=== PATIENT | female | born 1995 | race Caucasian/White ===

== ENCOUNTER → 2020-12-09 | Outpatient (REF) | payer OTHER | LOC: M SFHCWAGY 19:09 | PROVIDERS: ATTEND Nurse Practitioner Women's Health | DX: Z12.4 Encounter for screening for malignant neoplasm of cervix (principal) | CPT/HCPCS: G0123; G0463 ==

== ENCOUNTER → 2021-03-22 | Outpatient (CLI) | payer OTHER | LOC: EDUNIT# 12-24 09:00 → M WHC 10:38 | PROVIDERS: ATTEND Nurse Practitioner Women's Health | DX: N83.202 Unspecified ovarian cyst, left side (principal) ==

== ENCOUNTER → 2021-04-27 | Outpatient (CLI) | payer OTHER | LOC: M SOG 11:51 | PROVIDERS: ATTEND Orthopaedic Surgery | DX: M25.561 Pain in right knee (principal) ==

== ENCOUNTER → 2021-05-03 | Outpatient (CLI) | payer OTHER | LOC: M PLAIMG 13:32 | PROVIDERS: ATTEND Orthopaedic Surgery | DX: M25.561 Pain in right knee (principal); S83.191A Other subluxation of right knee, initial encounter; M23.91 Unspecified internal derangement of right knee; W18.30XA Fall on same level, unspecified, initial encounter; Y92.009 Unspecified place in unspecified non-institutional (private) residence as the place of occurrence of the external cause ==

== ENCOUNTER → 2021-05-19 | Outpatient (CLI) | payer OTHER | LOC: M RAD 16:16 | PROVIDERS: ATTEND Nurse Practitioner Family | DX: M51.26 Other intervertebral disc displacement, lumbar region (principal); M41.9 Scoliosis, unspecified ==

== ENCOUNTER → 2021-11-05 | Outpatient (REF) | payer OTHER | LOC: M LAB REF 12:14 | PROVIDERS: ATTEND Student in an Organized Health Care Education/Training Program | DX: J02.9 Acute pharyngitis, unspecified (principal) ==

== ENCOUNTER → 2022-07-11 | Outpatient (REF) | payer OTHER | LOC: M LAB REF 09:25 | PROVIDERS: ATTEND Student in an Organized Health Care Education/Training Program | DX: J02.9 Acute pharyngitis, unspecified (principal) ==

== ENCOUNTER → 2022-07-26 | Outpatient (CLI) | payer OTHER ==
[2022-07-26 14:39] LABS: HEMATOCRIT 37.7 % (36.0-47.0); HEMOGLOBIN 12.7 g/dl (12.0-15.5); MEAN CORPUSCULAR HEMOGLOBIN 31.9 pg (27.0-33.0); MEAN CORPUSCULAR HGB CONC 33.7 g/dl (32.0-36.5); MEAN CORPUSCULAR VOLUME 94.7 fl (80.0-96.0); PLATELET COUNT, AUTOMATED 324 10^3/uL (150-450); RED BLOOD COUNT 3.98 10^6/uL (4.00-5.40); WHITE BLOOD COUNT 7.7 10^3/uL (4.0-10.0)
[2022-07-26 15:35] LABS: HIV 1&2 SCREEN NEGATIVE (NEGATIVE)
[2022-07-26 15:43] LABS: HEPATITIS C VIRUS ABY INDEX 0.1 INDEX (<0.8)
== END ==
LOC: M PLALAB 10:47
PROVIDERS: ATTEND Advanced Practice Midwife
DX: Z34.01 Encounter for supervision of normal first pregnancy, first trimester (principal)

== ENCOUNTER → 2022-09-02 | Outpatient (CLI) | payer OTHER | LOC: M WHC 09:22 | PROVIDERS: ATTEND Obstetrics & Gynecology | DX: Z34.92 Encounter for supervision of normal pregnancy, unspecified, second trimester (principal) ==

== ENCOUNTER → 2022-09-02 | Outpatient (CLI) | payer OTHER ==
[2022-09-02 15:26] LABS: GC DNA AMPLIFICATION NEGATIVE (NEGATIVE)
== END ==
LOC: M PLALAB 09:52
PROVIDERS: ATTEND Obstetrics & Gynecology
DX: Z34.92 Encounter for supervision of normal pregnancy, unspecified, second trimester (principal)

== ENCOUNTER → 2022-10-18 | Outpatient (CLI) | payer OTHER | LOC: M WHC 06:44 | PROVIDERS: ATTEND Obstetrics & Gynecology | DX: Z34.92 Encounter for supervision of normal pregnancy, unspecified, second trimester (principal) ==

== ENCOUNTER → 2022-12-06 | Outpatient (CLI) | payer OTHER ==
[2022-12-06 16:08] LABS: HEMATOCRIT 32.2 % (36.0-47.0); HEMOGLOBIN 11.1 g/dl (12.0-15.5); MEAN CORPUSCULAR HEMOGLOBIN 32.2 pg (27.0-33.0); MEAN CORPUSCULAR HGB CONC 34.5 g/dl (32.0-36.5); MEAN CORPUSCULAR VOLUME 93.3 fl (80.0-96.0); PLATELET COUNT, AUTOMATED 317 10^3/uL (150-450); RED BLOOD COUNT 3.45 10^6/uL (4.00-5.40); WHITE BLOOD COUNT 10.7 10^3/uL (4.0-10.0)
[2022-12-06 17:37] LABS: GC DNA AMPLIFICATION NEGATIVE (NEGATIVE)
== END ==
LOC: M PLALAB 13:01
PROVIDERS: ATTEND Obstetrics & Gynecology
DX: Z34.92 Encounter for supervision of normal pregnancy, unspecified, second trimester (principal)

== ENCOUNTER → 2023-02-10 | Outpatient (REF) | payer OTHER | LOC: M PLALAB 15:54 | PROVIDERS: ATTEND Obstetrics & Gynecology | DX: Z36.85 Encounter for antenatal screening for Streptococcus B (principal); Z3A.36 36 weeks gestation of pregnancy ==

== ENCOUNTER 2023-03-03 02:33 | Outpatient (CLI) | payer OTHER ==
[~2023-03-03] VITALS: Ht 152.4 cm; Wt 80.7 kg
== END 2023-03-03 06:40 | disposition home or self-care (01) ==
LOC: M LDO 02:33
PROVIDERS: ATTEND Obstetrics & Gynecology
DX: O47.1 False labor at or after 37 completed weeks of gestation (principal); Z3A.39 39 weeks gestation of pregnancy
CPT/HCPCS: 59025; G0463

== ENCOUNTER 2023-03-12 13:38 | Inpatient (IN) | payer OTHER ==
[~2023-03-12] VITALS: Ht 152.4 cm; Wt 83.2 kg
[2023-03-12 14:05] VITALS: BP 134/76
[2023-03-12] MEDS ORDERED: HOME MED LIST COMPLETE! XX SCH (14:10)
[2023-03-12] MEDS ORDERED: MULTTAB20 PO (14:10)
[2023-03-12] MEDS ORDERED: ACET-897 PO (14:10)
[2023-03-12] MEDS ORDERED: OXYTOCIN DRIP 30 UNITS in IV 1 EA IV PRN ×4 (15:05)
[2023-03-12] MEDS ORDERED: LACTATED RINGER'S 1000 ML IV PRN (15:05)
[2023-03-12] MEDS ORDERED: TRANEXAMIC ACID INJection 1,000 MG in NS 100 ML IV PRN (15:05)
[2023-03-12] MEDS ORDERED: METHYLERGONOVINE MALEATE 0.2MG/ML 1ML VIAL IM PRN (15:05)
[2023-03-12] MEDS ORDERED: CARBOPROST TROMETHAMINE 250 MCG/ML AMP IM PRN (15:05)
[2023-03-12 15:18] VITALS: BP 118/74
[2023-03-12 15:25] LABS: HEMATOCRIT 32.4 % (36.0-47.0); HEMOGLOBIN 10.7 g/dl (12.0-15.5); MEAN CORPUSCULAR HEMOGLOBIN 27.8 pg (27.0-33.0); MEAN CORPUSCULAR VOLUME 84.2 fl (80.0-96.0); PLATELET COUNT, AUTOMATED 311 10^3/uL (150-450); RED BLOOD COUNT 3.85 10^6/uL (4.00-5.40)
[2023-03-12] MEDS ORDERED: miSOPROStol 50MCG 1/2 TABLET PO ONE (16:00)
[2023-03-12 16:13] VITALS: BP 110/70
[2023-03-12 17:16] VITALS: BP 116/74
[2023-03-12 18:20] VITALS: BP 124/68
[2023-03-12 19:15] VITALS: BP 111/71
[2023-03-13] VITALS (12 sets, daily range): BP systolic 104–136; BP diastolic 63–80
[2023-03-13] MEDS: miSOPROStol 50MCG 1/2 TABLET PO ONE ×2 (00:15→00:17)
[2023-03-13] MEDS ORDERED: OXYTOCIN DRIP 30 UNITS in IV 1 EA IV SCH (02:10)
[2023-03-13] MEDS ORDERED: CALCIUM CARBONATE 500 MG CHEW U/D PO PRN (08:05)
[2023-03-13] MEDS ORDERED: PROMETHAZINE 25MG/ML 1ML VIAL IV ONE (23:50)
[2023-03-13] MEDS ORDERED: BUTORPHANOL 2 MG/ML 1ML VIAL IV ONE (23:50)
[2023-03-14] VITALS (20 sets, daily range): BP systolic 80–126; BP diastolic 50–78; O2SAT 95–100
[2023-03-14] MEDS ORDERED: LACTATED RINGER'S 1000 ML IV STA (05:03)
[2023-03-14] MEDS ORDERED: LR 1,000 ML IV SCH ×4 (05:05→07:45)
[2023-03-14] MEDS ORDERED: ONDANSETRON 4MG 2ML VIAL IV PRN ×3 (05:05→07:45)
[2023-03-14] MEDS ORDERED: AZITHROMYCIN INJ 500 MG, VIAL MATE ADAPTER 1 EACH in NS 250 ML IV ONE (05:05)
[2023-03-14] MEDS ORDERED: LIDOCAINE 1% MDV 20ML VIAL INFIL PRN (05:05)
[2023-03-14] MEDS ORDERED: MEPERIDINE 25 MG/ML 1ML VIAL IV PRN (05:05)
[2023-03-14] MEDS ORDERED: BICITRA 30ML SOLN UDC PO ONE ×2 (05:05)
[2023-03-14] MEDS ORDERED: NALOXONE INJ 0.4MG/1ML VIAL IV PRN ×4 (05:05→07:45)
[2023-03-14] MEDS ORDERED: OXYTOCIN DRIP 30 UNITS in IV 1 EA IV PRN (05:05)
[2023-03-14] MEDS ORDERED: NALBUPHINE HCL 1MG/0.1ML (100MG/10ML) MDV IV PRN ×2 (05:05→07:45)
[2023-03-14] MEDS ORDERED: diphenhydrAMINE 50MG/ML VIAL IV PRN ×2 (05:05→07:45)
[2023-03-14] MEDS ORDERED: ceFAZolin SOD 2 GM in IV 1 EA IV ONE (05:05)
[2023-03-14] MEDS ORDERED: MORPHINE 2 MG/ML 1ML VIAL IV PRN (05:05)
[2023-03-14] MEDS ORDERED: **NOTE PATIENT COMMENT** MISC XX SCH ×2 (05:05→07:45)
[2023-03-14] MEDS ORDERED: METOCLOPRAMIDE INJ 10MG/2ML VIAL IV PRN ×2 (05:05→07:45)
[2023-03-14] MEDS ORDERED: ONDANSETRON 4MG 2ML VIAL IV ONE (06:00)
[2023-03-14] MEDS ORDERED: MORPHINE PRES-FREE INJ 10 MG/10 ML VIAL As Ordered ONE (06:18)
[2023-03-14] MEDS ORDERED: ACETAMINOPHEN 1000MG 100ML IV BAG As Ordered ONE (06:35)
[2023-03-14] MEDS ORDERED: OXYTOCIN 30UNITS IN 0.9% NaCl 500ML IV BAG As Ordered ONE ×2 (06:35→07:30)
[2023-03-14] MEDS ORDERED: PHENYLephrine 500MCG 5ML (100MCG/ML) SYRINGE As Ordered ONE ×2 (06:46→06:52)
[2023-03-14] MEDS ORDERED: ePHEDrine SULFATE 25 MG/5 ML(5MG/ML) SYRINGE As Ordered ONE ×2 (06:46→09:06)
[2023-03-14] MEDS ORDERED: KETOROLAC 60MG 2ML VIAL As Ordered ONE (06:49)
[2023-03-14] MEDS ORDERED: ANUSOL HC CREAM 30GM TOP PRN (07:20)
[2023-03-14] MEDS ORDERED: MORPHINE 4 MG/ML 1ML VIAL IV PRN (07:20)
[2023-03-14] MEDS ORDERED: OXYTOCIN DRIP 30 UNITS in IV 1 EA IV SCH (07:20)
[2023-03-14] MEDS ORDERED: SIMETHICONE 80MG CHEW TAB PO PRN (07:20)
[2023-03-14] MEDS ORDERED: PERCOCET 5MG/325MG TAB PO PRN (07:20)
[2023-03-14] MEDS ORDERED: RHOGAM 300MCG (1500IU) INJ IM SCH (07:20)
[2023-03-14] MEDS ORDERED: PERCOCET PO (07:25)
[2023-03-14] MEDS ORDERED: COLA100C5 PO (07:25)
[2023-03-14] MEDS ORDERED: IBUP80TA PO (07:25)
[2023-03-14] MEDS ORDERED: oxyCODONE 5MG TAB PO PRN (07:45)
[2023-03-14] MEDS ORDERED: fentaNYL 100 MCG/2 ML INJECTION IV PRN (07:45)
[2023-03-14] MEDS ORDERED: ePHEDrine INJ 50MG/ML 1ML VIAL IV PRN (09:10)
[2023-03-14] MEDS: ePHEDrine SULFATE 25 MG/5 ML(5MG/ML) SYRINGE IV PRN ×3 (09:10→09:20)
[2023-03-14] MEDS ORDERED: ePHEDrine SULFATE 25 MG/5 ML(5MG/ML) SYRINGE IVP PRN (09:25)
[2023-03-14] MEDS: SLF 3 ML SYR IV SCH ×5 (09:51→20:06)
[2023-03-14] MEDS: DOCUSATE SODIUM 100MG CAPSULE PO SCH ×2 (09:51→20:06)
[2023-03-14] MEDS: PRENATAL VITAMINS CHEWABLE TABLET PO SCH (09:52)
[2023-03-14] MEDS: KETOROLAC 30 MG/ML 1ML VIAL IV SCH ×2 (12:50→18:36)
[2023-03-15] VITALS (7 sets, daily range): BP systolic 97–118; BP diastolic 52–85; O2SAT 97–100
[2023-03-15] MEDS: KETOROLAC 30 MG/ML 1ML VIAL IV SCH (00:47)
[2023-03-15] MEDS: SLF 3 ML SYR IV SCH (00:47)
[2023-03-15] MEDS: ACETAMINOPHEN 500 MG TAB PO PRN ×2 (06:33→15:09)
[2023-03-15 07:36] LABS: HEMOGLOBIN 7.6 g/dl (12.0-15.5); MEAN CORPUSCULAR HEMOGLOBIN 27.4 pg (27.0-33.0); MEAN CORPUSCULAR HGB CONC 31.7 g/dl (32.0-36.5); MEAN CORPUSCULAR VOLUME 86.6 fl (80.0-96.0); PLATELET COUNT, AUTOMATED 206 10^3/uL (150-450); RED BLOOD COUNT 2.77 10^6/uL (4.00-5.40); WHITE BLOOD COUNT 10.7 10^3/uL (4.0-10.0)
[2023-03-15] MEDS: IBUPROFEN 800 MG TAB PO SCH ×2 (08:44→16:19)
[2023-03-15] MEDS: PRENATAL VITAMINS CHEWABLE TABLET PO SCH (08:44)
[2023-03-15] MEDS: DOCUSATE SODIUM 100MG CAPSULE PO SCH ×2 (08:44→20:16)
[2023-03-15] MEDS: PERCOCET 5MG/325MG TAB PO PRN (16:18)
[2023-03-16] VITALS (10 sets, daily range): BP systolic 104–131; BP diastolic 58–78; TEMP 98–98.8; O2SAT 97–100
[2023-03-16] MEDS: IBUPROFEN 800 MG TAB PO SCH ×3 (00:16→17:19)
[2023-03-16] MEDS: PERCOCET 5MG/325MG TAB PO PRN (01:50)
[2023-03-16] MEDS ORDERED: MEASLES,MUMPS,RUBELLA VACCINE INJ (MMR-II) SC.IMMUN ONE (09:00)
[2023-03-16] MEDS: DOCUSATE SODIUM 100MG CAPSULE PO SCH ×2 (09:41→19:08)
[2023-03-16] MEDS: PRENATAL VITAMINS CHEWABLE TABLET PO SCH (09:41)
[2023-03-17] MEDS: IBUPROFEN 800 MG TAB PO SCH ×2 (00:20→07:42)
[2023-03-17 06:31] LABS: HEMATOCRIT 28.4 % (36.0-47.0); HEMOGLOBIN 9.2 g/dl (12.0-15.5); MEAN CORPUSCULAR HGB CONC 32.4 g/dl (32.0-36.5); MEAN CORPUSCULAR VOLUME 86.6 fl (80.0-96.0); PLATELET COUNT, AUTOMATED 255 10^3/uL (150-450); RED BLOOD COUNT 3.28 10^6/uL (4.00-5.40); WHITE BLOOD COUNT 9.2 10^3/uL (4.0-10.0)
[2023-03-17] MEDS: DOCUSATE SODIUM 100MG CAPSULE PO SCH (07:42)
[2023-03-17] MEDS: PRENATAL VITAMINS CHEWABLE TABLET PO SCH (07:42)
[2023-03-17 09:00] VITALS: BP 128/79; O2SAT 99
== END 2023-03-17 12:15 | disposition home or self-care (01) | DRG 773 ==
LOC: M LDI 13:38 → M OBS 03-14 09:08
PROVIDERS: ADMIT Obstetrics & Gynecology; ATTEND Obstetrics & Gynecology
PROC: 3E0P7GC Introduction of Other Therapeutic Substance into Female Reproductive, Via Natural or Artificial Opening (ICD-10-PCS; 2023-03-12)
PROC: 10907ZC Drainage of Amniotic Fluid, Therapeutic from Products of Conception, Via Natural or Artificial Opening (ICD-10-PCS; 2023-03-13)
PROC: 10D00Z1 Extraction of Products of Conception, Low, Open Approach (ICD-10-PCS; principal; 2023-03-14 06:00)
PROC: 30233N1 Transfusion of Nonautologous Red Blood Cells into Peripheral Vein, Percutaneous Approach (ICD-10-PCS; 2023-03-16)
DX: O48.0 Post-term pregnancy (principal); Z3A.40 40 weeks gestation of pregnancy; O62.0 Primary inadequate contractions; Z37.0 Single live birth; D64.9 Anemia, unspecified; O99.02 Anemia complicating childbirth

== ENCOUNTER → 2023-05-04 | Outpatient (CLI) | payer OTHER ==
[~2023-05-04] MED LIST: ACET-897 PO; COLA100C5 PO; IBUP80TA PO; MULTTAB20 PO; PERCOCET PO
[2023-05-04 15:52] LABS: BASO % 0.5 % (0.0-1.0); EOS # 0.2 10^3/uL (0.0-0.5); EOS % 3.2 % (0.0-3.0); HEMATOCRIT 40.6 % (36.0-47.0); HEMOGLOBIN 13.2 g/dl (12.0-15.5); LYMPH # 2.6 10^3/uL (1.5-5.0); LYMPH % 40.1 % (24.0-44.0); MEAN CORPUSCULAR HEMOGLOBIN 28.5 pg (27.0-33.0); MEAN CORPUSCULAR HGB CONC 32.5 g/dl (32.0-36.5); MEAN CORPUSCULAR VOLUME 87.7 fl (80.0-96.0); MONO # 0.5 10^3/uL (0.0-0.8); MONO % 7.5 % (2.0-8.0); NEUTROPHILS # 3.2 10^3/uL (1.5-8.5); NEUTROPHILS % 48.5 % (36.0-66.0); PLATELET COUNT, AUTOMATED 331 10^3/uL (150-450); RED BLOOD COUNT 4.63 10^6/uL (4.00-5.40); WHITE BLOOD COUNT 6.5 10^3/uL (4.0-10.0)
[2023-05-04 16:17] LABS: IRON (FE) 71 UG/DL (50-170)
[2023-05-04 16:18] LABS: ALBUMIN 3.9 G/DL (3.2-5.2); ALKALINE PHOSPHATASE 91 U/L (46-116); ALT/SGPT 150 U/L (7.0-40); AST/SGOT 76 U/L (<34); BILIRUBIN,TOTAL 0.5 MG/DL (0.3-1.2); BLOOD UREA NITROGEN 13 MG/DL (9-23); CALCIUM LEVEL 9.6 MG/DL (8.5-10.1); CARBON DIOXIDE LEVEL 30 MMOL/L (20-31); CHLORIDE LEVEL 105 MMOL/L (98-107); CREATININE FOR GFR 0.67 MG/DL (0.55-1.30); GLOMERULAR FILTRATION RATE > 60.0 (>60); GLUCOSE, FASTING 98 MG/DL (60-100); MAGNESIUM LEVEL 1.9 MG/DL (1.8-2.4); PERCENT SATURATION 18.7 % (13.2-45.0); POTASSIUM SERUM 4.7 MMOL/L (3.5-5.1); SODIUM LEVEL 140 MMOL/L (136-145); TOTAL IRON BINDING CAPACITY 379 UG/DL (250-425); TOTAL PROTEIN 7.2 G/DL (5.7-8.2)
[2023-05-04 16:19] LABS: THYROID STIMULATING HORMONE 1.025 uIU/ML (0.55-4.78)
[2023-05-04 16:20] LABS: FERRITIN 9.7 NG/ML (7.3-270.7); TOTAL 25(OH) VITAMIN D 32.9 NG/ML (20.0-100.0)
== END ==
LOC: M PLAIMG 12:36
PROVIDERS: ATTEND Nurse Practitioner Family
DX: M54.6 Pain in thoracic spine (principal)

== ENCOUNTER → 2023-09-01 | Outpatient (CLI) | payer OTHER ==
[2023-09-01 16:28] LABS: ALKALINE PHOSPHATASE 102 U/L (46-116); ALT/SGPT 34 U/L (7.0-40); AST/SGOT 18 U/L (<34); BILIRUBIN,TOTAL 0.5 MG/DL (0.3-1.2); BLOOD UREA NITROGEN 8 MG/DL (9-23); CALCIUM LEVEL 9.3 MG/DL (8.5-10.1); CARBON DIOXIDE LEVEL 30 MMOL/L (20-31); CHLORIDE LEVEL 103 MMOL/L (98-107); CREATININE FOR GFR 0.55 MG/DL (0.55-1.30); GLOMERULAR FILTRATION RATE > 60.0 (>60); GLUCOSE, FASTING 93 MG/DL (60-100); POTASSIUM SERUM 4.8 MMOL/L (3.5-5.1); SODIUM LEVEL 139 MMOL/L (136-145); TOTAL PROTEIN 7.1 G/DL (5.7-8.2)
[2023-09-01 16:29] LABS: THYROID STIMULATING HORMONE 9.392 uIU/ML (0.55-4.78)
[2023-09-01 16:30] LABS: FREE T4 0.63 NG/DL (0.89-1.76)
[2023-09-01 16:38] LABS: HEMOGLOBIN A1c 5.1 % (4.0-6.0)
== END ==
LOC: M PLALAB 12:27
PROVIDERS: ATTEND Registered Nurse
DX: R42 Dizziness and giddiness (principal)

== ENCOUNTER → 2023-09-14 | Outpatient (CLI) | payer OTHER | LOC: M PLARAD 07:56 | PROVIDERS: ATTEND Physician Assistant | DX: M41.9 Scoliosis, unspecified (principal) ==